=== PATIENT | male | born 1965 | race Caucasian/White ===

== ENCOUNTER 2022-05-12 13:22 | Observation (INO) | payer BC ==
[2022-05-12] MEDS ORDERED: Aspirin Chewable 81 MG TAB ONE (14:05)
[2022-05-12 14:06] LABS: #Basophils 0.1 10x3/uL (0.0-0.2); #Eosinphils 0.5 10x3/uL (0.0-0.5); #Monocytes 0.7 10x3/uL (0.0-1.1); #Neutrophils 4.1 10x3/uL (1.5-8.4); %Basophils 1.2 % (0.0-2.0); %Eosinophils 6.4 % (0.0-6.0); %Lymphocytes 27.8 % (18.0-47.0); %Monocytes 9.5 % (0.0-10.0); %Neutrophils 53.9 % (40.0-75.0); Hemoglobin 15.8 g/dL (13.5-17.5); Mean Corpuscular HGB CONC 35.1 g/dL (32.0-36.0); Mean Corpuscular Hemoglobin 28.8 pg (27.0-33.0); Mean Corpuscular Volume 82.1 fl (81.2-95.1); Mean Platelet Volume 9.6 fl (7.4-10.4); Platelet Count 237 10x3/uL (150-450); RBC Distribution Width 12.7 % (11.5-14.5); Red Blood Cell (RBC) Count 5.48 10x6/uL (4.32-5.72); White Blood Cell (WBC) Count 7.6 10x3/uL (3.5-10.5)
[2022-05-12] MEDS ORDERED: Nitroglycerin 2% Ointment 1 INCH/1 GM Packet ONE (14:06)
[2022-05-12 14:09] LABS: ALT (SGPT) 30 U/L (8-55); AST (SGOT) 26 U/L (5-34); Albumin 4.3 g/dL (3.5-5.0); Alkaline Phosphatase 73 U/L (40-110); Anion Gap 13 mmol/L (10-20); BUN (Urea Nitrogen) 15 mg/dL (8.4-25.7); Bilirubin, Total 0.8 mg/dL (0.2-1.2); Calc. Creatinine Clearance 0 mL/min (70-130); Calcium 9.5 mg/dL (7.8-10.44); Carbon Dioxide 29 mmol/L (22-29); Chloride 103 mmol/L (98-107); Estimated GFR 94; Globulin 2.8 g/dL (2.4-3.5); Glucose 112 mg/dL (70-105); Potassium 3.7 mmol/L (3.5-5.1); Protein, Total 7.1 g/dL (6.0-8.3); Sodium 141 mmol/L (136-145)
[2022-05-12 14:19] LABS: CK (CPK) 93 U/L (30-200); Lipase 18 U/L (8-78)
[2022-05-12 17:12] LABS: Troponin I Less than 0.010 ng/mL (< 0.028)
[2022-05-12 19:23] LABS: Troponin I Less than 0.010 ng/mL (< 0.028)
[2022-05-12] MEDS ORDERED: Communication Order-Pharmacy FS SCH (21:00)
[2022-05-12 21:31] VITALS: BMI 34.0
[2022-05-12] MEDS ORDERED: Atorvastatin Calcium 40 MG TAB PO SCH (21:45)
[2022-05-12] MEDS ORDERED: Carvedilol 6.25 MG TAB PO SCH (21:45)
[2022-05-13 01:40] LABS: SARS-CoV-2 NAA Rapid Test Not Detected (NotDetected)
[2022-05-13 05:16] LABS: #Basophils 0.1 10x3/uL (0.0-0.2); #Eosinphils 0.6 10x3/uL (0.0-0.5); #Monocytes 0.9 10x3/uL (0.0-1.1); #Neutrophils 4.1 10x3/uL (1.5-8.4); %Basophils 1.2 % (0.0-2.0); %Eosinophils 7.3 % (0.0-6.0); %Lymphocytes 30.9 % (18.0-47.0); %Neutrophils 48.8 % (40.0-75.0); Hemoglobin 14.9 g/dL (13.5-17.5); Mean Corpuscular HGB CONC 34.2 g/dL (32.0-36.0); Mean Corpuscular Hemoglobin 28.5 pg (27.0-33.0); Mean Corpuscular Volume 83.4 fl (81.2-95.1); Mean Platelet Volume 9.5 fl (7.4-10.4); Platelet Count 217 10x3/uL (150-450); RBC Distribution Width 12.5 % (11.5-14.5); Red Blood Cell (RBC) Count 5.23 10x6/uL (4.32-5.72); White Blood Cell (WBC) Count 8.3 10x3/uL (3.5-10.5)
[2022-05-13 05:17] LABS: INR-International Normal Ratio 0.9; PTT 25.4 sec (22.0-33.0); Prothrombin Time 10.3 sec (9.5-12.1)
[2022-05-13 05:24] LABS: ALT (SGPT) 25 U/L (8-55); AST (SGOT) 20 U/L (5-34); Albumin 3.8 g/dL (3.5-5.0); Alkaline Phosphatase 86 U/L (40-110); Anion Gap 16 mmol/L (10-20); BUN (Urea Nitrogen) 18 mg/dL (8.4-25.7); Bilirubin, Total 0.5 mg/dL (0.2-1.2); Calc. Creatinine Clearance 123 mL/min (70-130); Calcium 9.1 mg/dL (7.8-10.44); Carbon Dioxide 25 mmol/L (22-29); Chloride 106 mmol/L (98-107); Cholesterol 92 mg/dl (< 200 Desired); Estimated GFR 98; Globulin 2.5 g/dL (2.4-3.5); Glucose 120 mg/dL (70-105); HDL Cholesterol 31 mg/dL (>60 Neg Risk); LDL Cholesterol, Calculated 22 mg/dL; Potassium 3.6 mmol/L (3.5-5.1); Protein, Total 6.3 g/dL (6.0-8.3); Sodium 143 mmol/L (136-145); Triglycerides 194 mg/dL (Less than 150)
[2022-05-13] MEDS ORDERED: Carvedilol 6.25 MG TAB PO SCH (08:00)
[2022-05-13] MEDS ORDERED: Aspirin 81 mg Enteric Coated Tablet PO SCH (09:00)
[2022-05-13] MEDS ORDERED: Losartan Potassium 50 MG TAB PO SCH (09:00)
[2022-05-13] MEDS ORDERED: Hydrochlorothiazide 25 MG TAB PO SCH (09:00)
[2022-05-13] MEDS ORDERED: Lidocaine 1% MPF 2 ML VIAL ONE ×2 (09:34)
[2022-05-13] MEDS ORDERED: Nitroglycerin 50 MG/250 ML BOT 250 ML ONE (09:34)
[2022-05-13] MEDS ORDERED: Lidocaine 1% 20 ML MDV ONE (09:35)
[2022-05-13] MEDS ORDERED: Verapamil 5 MG/2 ML VIAL ONE (09:35)
[2022-05-13] MEDS ORDERED: Heparin 10,000 UNITS/ 10 ML VIAL ONE (09:35)
[2022-05-13] MEDS ORDERED: Sodium Chloride 0.9% 1,000 ML ONE (09:36)
[2022-05-13] MEDS ORDERED: Adenosine 6 MG/2 ML VIAL ONE (09:36)
[2022-05-13] MEDS ORDERED: Bivalirudin 250 MG VIAL ONE (09:36)
[2022-05-13] MEDS ORDERED: Fentanyl 100 MCG/2 ML VIAL ONE (09:45)
[2022-05-13] MEDS ORDERED: Midazolam HCl 2 mg/2 ml Vial ONE (09:46)
[2022-05-13] MEDS ORDERED: Sodium Chloride 0.9% 200 ML IV PRN (10:52)
[2022-05-13] MEDS ORDERED: Acetaminophen/Codeine 30-300mg Tablet PO PRN ×2 (10:52)
[2022-05-13] MEDS ORDERED: Nitroglycerin 0.4 MG TAB (25 Tab Bottle) SL PRN (10:52)
[2022-05-13] MEDS ORDERED: Iopamidol 300 61% 100 ML VIAL FS ONE (14:32)
[2022-05-13] MEDS ORDERED: Atorvastatin Calcium 40 MG TAB PO SCH (21:00)
[2022-05-13 21:42] VITALS: BP 130/76; TEMP 98.6
== END 2022-05-13 15:48 | disposition home or self-care (01) ==
LOC: CSHERS 13:22 → CSHTELE 21:28 → INTOOBSV 21:28
PROVIDERS: ADMIT Student in an Organized Health Care Education/Training Program; ATTEND Internal Medicine
PROC: 4A023N7 Measurement of Cardiac Sampling and Pressure, Left Heart, Percutaneous Approach (ICD-10-PCS; principal; 2022-05-13)
PROC: B201YZZ Plain Radiography of Multiple Coronary Arteries using Other Contrast (ICD-10-PCS; 2022-05-13)
PROC: B205YZZ Plain Radiography of Left Heart using Other Contrast (ICD-10-PCS; 2022-05-13)
DX: I20.8 Other forms of angina pectoris (principal); R20.0 Anesthesia of skin; R42 Dizziness and giddiness; R06.02 Shortness of breath; E78.5 Hyperlipidemia, unspecified; I11.0 Hypertensive heart disease with heart failure; I50.9 Heart failure, unspecified; E88.81 Metabolic syndrome and other insulin resistance; F41.9 Anxiety disorder, unspecified; R53.1 Weakness; Z86.79 Personal history of other diseases of the circulatory system; Z79.82 Long term (current) use of aspirin; Z79.899 Other long term (current) drug therapy; Z20.822 Contact with and (suspected) exposure to COVID-19; Z87.891 Personal history of nicotine dependence; Z95.5 Presence of coronary angioplasty implant and graft
CPT/HCPCS: 36415; 71045; 80053; 80061; 82550; 83690; 83880; 84484; 85025; 85610; 85730; 93005; 93458; 99152; C1760; C1769; C1894; G0378; J0153; J0583; J1644; J2250; J3010; J7050; Q9967; U0002